=== PATIENT | female | born 1970 | race Caucasian/White ===

== ENCOUNTER 2018-12-08 07:49 | Day surgery (SDC) | payer BC ==
[2018-12-08 08:29] LABS: International Normalized Ratio 1.01; Prothrombin Time Results 10.4 Sec (9.7-11.5)
== END 2018-12-08 22:35 | disposition home or self-care (01) ==
LOC: MHTC 07:49
PROVIDERS: Radiology Diagnostic Radiology
DX: I87.2 Venous insufficiency (chronic) (peripheral) (principal)
CPT/HCPCS: 36415; 36475; 85610; 99152; 99153; C1888; C1894; J1644; J2250; J3010; J7040